=== PATIENT | female | born 1980 | race Caucasian/White ===

== ENCOUNTER → 2017-04-05 | Outpatient (CLI) | payer OTHER ==
--- NOTE | 2017-04-05 15:27 | XR ---
EXAMINATION TYPE: XR KUB DATE OF EXAM: 04/05/2017 COMPARISON: 03/02/2013 INDICATION: Neurogenic bladder TECHNIQUE: Single view abdomen supine view FINDINGS: There is a normal bowel gas pattern. Psoas margins are normal. No organomegaly is present. Fixation rods are present through the thoracolumbar spine. There is a catheter present within the midline. IMPRESSION: 1. Nonspecific abdomen
--- NOTE | 2017-04-05 15:49 | US ---
EXAMINATION TYPE: US kidneys/renal and bladder DATE OF EXAM: 04/05/2017 COMPARISON: NONE CLINICAL HISTORY: N31.9 Neurogenic bladder. EXAM MEASUREMENTS: Right Kidney: 9.7 x 4.6 x 4.0 cm Left Kidney: 9.8 x 5.4 x 5.0 cm limited vis, patient has no use of lower body and knees are permanently bent. Technically difficult e xam. Right Kidney: No hydronephrosis or masses seen Left Kidney: No hydronephrosis or masses seen Bladder: barely distended at all IMPRESSION: 1. Limited examination. 2. No obvious retroperitoneal abnormality. 3. Limited urinary bladder evaluation
== END | disposition home or self-care (01) ==
LOC: RADUSWWP 14:03 → EEVIPCON 14:03
PROVIDERS: ATTEND Urology
DX: N31.9 Neuromuscular dysfunction of bladder, unspecified (principal)
CPT/HCPCS: 74000; 76770

== ENCOUNTER → 2018-03-15 | Outpatient (CLI) | payer OTHER ==
[2018-03-15 10:42] VITALS: BP 120/65; PULSE 71; TEMP 97; BMI 23.8
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
--- NOTE | 2018-03-15 14:52 | MM ---
Reason for exam: screening (asymptomatic). Physical Findings: A clinical breast exam by your physician is recommended on an annual basis and results should be correlated with mammographic findings. MG Screening Mammo w CAD Bilateral CC and MLO view(s) were taken. No prior studies available for comparison. There are scattered fibroglandular densities. There is no discrete abnormality. No significant changes when compared with prior studies. ASSESSMENT: Negative, BI-RAD 1 RECOMMENDATION: Routine screening mammogram of both breasts in 1 year.
== END | disposition home or self-care (01) ==
LOC: WWCWWP 10:10
PROVIDERS: ATTEND Obstetrics & Gynecology
DX: Z12.31 Encounter for screening mammogram for malignant neoplasm of breast (principal)
CPT/HCPCS: 77067

== ENCOUNTER 2018-10-30 09:04 | Emergency (ER) | payer OTHER ==
[2018-10-30 09:10] VITALS: BP 137/73; PULSE 81; RESP 16; TEMP 97.9
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
[2018-10-30 10:19] LABS: Appearance,Urine Clear (Clear); Bilirubin,Urine Negative (Negative); Blood,Urine Negative (Negative); Color,Urine Yellow; Glucose,Urine (UA) Negative (Negative); Ketones,Urine Negative (Negative); Leukocyte Esterase,Urine Negative (Negative); Nitrite,Urine Negative (Negative); PH, Urine 6.5 (5.0-8.0); Protein,Urine Negative (Negative); Specific Gravity,Urine 1.017 (1.001-1.035); Urobilinogen,Urine <2.0 mg/dL (<2.0)
[2018-10-30 17:54] LABS: HIV 1 AB Non-Reactive (Non-Reactive); HIV AB P24 Non-Reactive (Non-Reactive); HIV P24 AG Non-Reactive (Non-Reactive)
[2018-10-31 14:39] LABS: N. gonorrhoeae,PCR Negative (Neg,Equiv); Neisseria Source Vagina
[2018-10-31 15:06] LABS: C. trachomatis,PCR Negative (Neg,Equiv); Chlamydia trachomatis Source Vagina
[2018-11-01 07:50] LABS: Herpes simplex I and/or II IgM 0.41 INDEX (<=0.90); Herpes simplex IgG I Ab 0.29 (< or = 0.90); Herpes simplex IgG II Ab 20.5 (< or = 0.90)
== END 2018-10-30 10:45 | disposition home or self-care (01) ==
LOC: EC 09:04
DX: Z11.3 Encounter for screening for infections with a predominantly sexual mode of transmission (principal); F32.9 Major depressive disorder, single episode, unspecified; Z87.891 Personal history of nicotine dependence; Z88.5 Allergy status to narcotic agent; Z79.899 Other long term (current) drug therapy
CPT/HCPCS: 36415; 81003; 81025; 86694; 86695; 86696; 86780; 87070; 87205; 87390; 87491; 87591; 87808; 99283

== ENCOUNTER → 2019-04-25 | Outpatient (CLI) | payer MEDICARE, OTHER ==
--- NOTE | 2019-04-25 19:44 | XR ---
EXAMINATION TYPE: XR chest 2V DATE OF EXAM: 04/25/2019 COMPARISON: NONE TECHNIQUE: PA and lateral views submitted. HISTORY: Cough FINDINGS: The lungs are clear and there is no pneumothorax, pleural effusion, or focal pneumonia. Postsurgica l change involving the vertebral column. IMPRESSION: 1. No acute process.
--- NOTE | 2019-04-30 08:22 | MM ---
Reason for exam: screening (asymptomatic). Last mammogram was performed 1 year and 1 month ago. Physical Findings: A clinical breast exam by your physician is recommended on an annual basis and results should be correlated with mammographic findings. MG 3D Screening Mammo W/Cad Bilateral CC and MLO view(s) were taken. Prior study comparison: March 15, 2018, bilateral MG screening mammo w CAD. There are scattered fibroglandular densities. Stable 12 o'clock focal asymmetry on the left breast. No significant new finding when compared with prior studies. ASSESSMENT: Negative, BI-RAD 1 RECOMMENDATION: Routine screening mammogram of both breasts in 1 year.
== END | disposition home or self-care (01) ==
LOC: RADMAMWWP 15:25
PROVIDERS: ATTEND Family Medicine
DX: Z12.31 Encounter for screening mammogram for malignant neoplasm of breast (principal); R05 Cough
CPT/HCPCS: 71046; 77063; 77067

== ENCOUNTER → 2019-06-05 | Outpatient (CLI) | payer MEDICARE, OTHER ==
[2019-06-05 15:40] VITALS: BP 114/71; PULSE 63; RESP 20; TEMP 98.2
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
== END | disposition home or self-care (01) ==
LOC: WWCWWP 15:16
PROVIDERS: ATTEND Obstetrics & Gynecology
DX: Z53.9 Procedure and treatment not carried out, unspecified reason (principal)

== ENCOUNTER → 2019-07-30 | Outpatient (CLI) | payer MEDICARE, OTHER ==
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
== END | disposition home or self-care (01) ==
LOC: RADUSWWP 10:43
PROVIDERS: ATTEND Urology
DX: N31.9 Neuromuscular dysfunction of bladder, unspecified (principal); Z88.5 Allergy status to narcotic agent
CPT/HCPCS: 76770

== ENCOUNTER → 2024-04-13 | Outpatient (CLI) | payer MEDICARE, OTHER ==
--- NOTE | 2024-04-13 15:36 | US ---
EXAMINATION TYPE: US kidneys/renal and bladder DATE OF EXAM: 04/13/2024 COMPARISON: US 2018 CLINICAL INDICATION: Female, 44 years old with history of N31.9 NEUROMUSCULAR DYSFUNCTION OF BLADDER, UNSPEC; EXAM MEASUREMENTS: Right Kidney: 9.7 x 5.3 x 5.3 cm Left Kidney: 10.8 x 5.2 x 5.8 cm Difficult and limited study due to patient body habitus Right Kidney: limited by rib shadowing and overlying bowel gas Left Kidney: limited by rib shadowing and overlying bowel gas Bladder: wnl Bilateral Jets seen: yes IMPRESSION: 1. Markedly limited study due to patient's body habitus and overlying bowel gas. 2. Grossly unremarkable kidneys without evidence of hydronephrosis, calculus or solid renal mass.
== END | disposition home or self-care (01) ==
LOC: RADUSWWP 12:33
PROVIDERS: ATTEND Urology
DX: N31.9 Neuromuscular dysfunction of bladder, unspecified (principal)
CPT/HCPCS: 76770

== ENCOUNTER → 2024-09-25 | Outpatient (CLI) | payer OTHER ==
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
== END | disposition home or self-care (01) ==
LOC: RADXRMAIN 12:37
PROVIDERS: ATTEND Physical Medicine & Rehabilitation
DX: M19.011 Primary osteoarthritis, right shoulder (principal); M19.012 Primary osteoarthritis, left shoulder